=== PATIENT | male | born 1990 | race Caucasian/White ===

== ENCOUNTER 2024-10-24 15:01 | Inpatient (IN) | payer OTHER ==
[~2024-10-24] VITALS: Ht 172.7 cm; Wt 85.0 kg
[2024-10-24] MEDS ORDERED: ALBUTEROL SULFATE 2.5 MG/0.5 ML NEB SOLUTION NEB PRN (18:30)
[2024-10-24] MEDS ORDERED: IPRATROPIUM BROMIDE 0.5 MG/2.5 ML NEB SOLUTION NEB PRN (18:30)
[2024-10-24] MEDS ORDERED: BISACODYL 10 MG RECTAL RECTAL SUPPOSITORY PR PRN (18:30)
[2024-10-24] MEDS ORDERED: MAGNESIUM HYDROXIDE SUSPENSION 30 ML UDCUP PO PRN (18:30)
[2024-10-24] MEDS ORDERED: ONDANSETRON HCL 4 MG/2 ML VIAL IVP PRN (18:30)
[2024-10-24] MEDS ORDERED: ZOLPIDEM TARTRATE 5 MG TABLET PO PRN (18:30)
[2024-10-24] MEDS ORDERED: ACETAMINOPHEN 325 MG TABLET PO PRN (18:30)
[2024-10-24 22:30] VITALS: BP 127/74; PULSE 58; RESP 17; TEMP 97.7; O2SAT 100
[2024-10-24] MEDS ORDERED: SODIUM CHLORIDE 3% 15 ML NEB SOLUTION NEB ONE (23:09)
[2024-10-24 23:12] VITALS: PULSE 62; RESP 16; O2SAT 98
[2024-10-25 06:33] VITALS: BP 111/74; PULSE 61; RESP 18; TEMP 98.2; O2SAT 100
[2024-10-25 09:00] VITALS: BP 116/66; PULSE 58; RESP 17; TEMP 98.1; O2SAT 98
[2024-10-25] MEDS: PANTOPRAZOLE SODIUM 40 MG DR TABLET PO SCH (09:21)
[2024-10-25 12:35] LABS: MTB PCR w/Rif. Resistance-SPUT NOT DETECTED (Not Detectd)
[2024-10-25 12:35] LABS: MTB PCR w/Rif. Resistance-SPUT NOT DETECTED (Not Detectd)
[2024-10-25 15:52] VITALS: BP 112/65; PULSE 59; RESP 18; TEMP 98.1; O2SAT 99
[2024-10-25] MEDS ORDERED: HydrALAZINE HCL 10 MG TABLET PO SCH (16:00)
[2024-10-25 21:29] VITALS: BP 115/65; PULSE 60; RESP 18; TEMP 97.7; O2SAT 99
[2024-10-26 03:07] LABS: HEPATITIS C AB (EIA) Non Reactive (Non Reactive)
[2024-10-26 04:30] VITALS: BP 100/68; PULSE 65; RESP 18; TEMP 97.9; O2SAT 95
[2024-10-26 14:55] VITALS: BP 109/66; PULSE 60; RESP 20; TEMP 98.4; O2SAT 98
[2024-10-26 20:15] VITALS: BP 121/64; PULSE 61; RESP 20; TEMP 98.1; O2SAT 98
[2024-10-27 05:48] VITALS: BP 120/66; PULSE 63; RESP 20; TEMP 98.1; O2SAT 97
[2024-10-27 07:00] VITALS: BP 117/80; PULSE 55; RESP 19; TEMP 98.1; O2SAT 99
[2024-10-27 07:07] LABS: QUANTIFERON+, Nil Value 1.35 IU/mL; QUANTIFERON+,Mitogen Value >10.00 IU/mL; QUANTIFERON+,TB1 Antigen Value 1.44 IU/mL; QUANTIFERON+,TB2 Antigen Value 1.35 IU/mL; QUANTIFERON, TB GOLD PLUS Negative (Negative)
[2024-10-27 15:00] VITALS: BP 118/63; PULSE 69; RESP 20; TEMP 98.2; O2SAT 98
[2024-10-27 19:39] VITALS: BP 122/72; PULSE 72; RESP 18; TEMP 98.2; O2SAT 99
[2024-10-28 04:37] VITALS: BP 109/68; PULSE 63; RESP 18; TEMP 97.9; O2SAT 97
[2024-10-28 07:30] VITALS: BP 109/63; PULSE 54; RESP 20; TEMP 98.1; O2SAT 99
[2024-10-28 19:24] VITALS: BP 116/65; PULSE 62; RESP 18; TEMP 97.9; O2SAT 98
[2024-10-29 04:32] VITALS: BP 120/75; PULSE 72; RESP 18; TEMP 98.1; O2SAT 98
[2024-10-29 07:35] VITALS: BP 107/64; PULSE 58; RESP 18; TEMP 97.9; O2SAT 98
[2024-10-29 20:47] VITALS: BP 128/77; PULSE 62; RESP 18; TEMP 98.2; O2SAT 98
[2024-10-30 04:32] VITALS: BP 115/71; PULSE 64; RESP 18; TEMP 98.1; O2SAT 98
[2024-10-30 09:13] VITALS: BP 121/75; PULSE 58; RESP 18; O2SAT 99
== END 2024-10-30 15:21 | DRG 951 ==
LOC: EMS 15:01 → EDH 18:16 → 4E 22:15
PROVIDERS: ADMIT Hospitalist; ATTEND Hospitalist
DX: Z03.89 Encounter for observation for other suspected diseases and conditions ruled out (principal); Z79.899 Other long term (current) drug therapy; Z78.9 Other specified health status; Z20.1 Contact with and (suspected) exposure to tuberculosis
CPT/HCPCS: 71046; 71250; 86480; 86803; 87015; 87206; 87340; 87389; 87556; 94640; 99285; G0378; 36415-L1; 36415-TC